=== PATIENT | female | born 1985 | race Hispanic/Latino ===

== ENCOUNTER 2022-12-08 12:15 | Inpatient (IN) | payer OTHER ==
[2022-12-08 12:46] VITALS: BMI 25.8
[2022-12-08] MEDS ORDERED: hydrALAZINE 20 MG/ML VIAL SLOW IVP PRN ×2 (13:15→23:05)
[2022-12-08] MEDS ORDERED: Lactated Ringer's 1,000 ML IV SCH ×2 (13:30→16:00)
[2022-12-08] MEDS ORDERED: Acetaminophen 500 MG TAB PO SCH (14:00)
[2022-12-08] MEDS ORDERED: Morphine 4 MG/ML VIAL SLOW IVP SCH (14:45)
[2022-12-08] MEDS ORDERED: Fentanyl 100 MCG/2 ML VIAL SLOW IVP SCH (14:45)
[2022-12-08] MEDS ORDERED: Fentanyl 100 MCG/2 ML VIAL SLOW IVP PRN (15:49)
[2022-12-08] MEDS ORDERED: Ondansetron PF 4 MG/2 ML Vial IVP PRN ×2 (15:49→17:16)
[2022-12-08] MEDS ORDERED: Diphenoxylate HCl/Atropine Tablet PO PRN (15:49)
[2022-12-08] MEDS ORDERED: Methylergonovine 0.2 MG/ML VIAL IM PRN (15:49)
[2022-12-08] MEDS ORDERED: Docusate 100 MG CAP PO PRN (15:49)
[2022-12-08] MEDS ORDERED: Butorphanol Tartrate 1 MG/ML VIAL SLOW IVP PRN (15:49)
[2022-12-08] MEDS ORDERED: Carboprost 250 MCG/ML AMP IM PRN (15:49)
[2022-12-08] MEDS ORDERED: Lidocaine 1% (PF) 30 ML VIAL SC PRN (15:49)
[2022-12-08] MEDS ORDERED: Tranexamic Acid 1,000 MG in Sodium Chloride 0.9% 250 ML 250 ML IVPB PRN (15:49)
[2022-12-08] MEDS ORDERED: Acetaminophen 500 MG TAB PO PRN (15:49)
[2022-12-08] MEDS ORDERED: Misoprostol 200 MCG TAB PR PRN (15:49)
[2022-12-08] MEDS ORDERED: Promethazine HCl 25 MG/ML VIAL IM PRN ×2 (15:49→17:16)
[2022-12-08] MEDS ORDERED: NS w/ Oxytocin 30 units 500 ML IV SCH ×2 (16:00)
[2022-12-08] MEDS ORDERED: Misoprostol 100 MCG TAB VAG SCH ×2 (16:00)
[2022-12-08] MEDS ORDERED: Fentanyl 2 mcg/Bup 0.1% Cadd 100 ML ONE (16:01)
[2022-12-08 16:30] LABS: Hemoglobin 11.4 g/dL (12.0-15.5); Mean Corpuscular HGB CONC 33.9 g/dL (32.0-36.0); Mean Corpuscular Hemoglobin 29.7 pg (27.0-33.0); Mean Corpuscular Volume 87.5 fl (81.6-98.3); Mean Platelet Volume 12.3 fl (7.4-10.4); Platelet Count 229 10x3/uL (150-450); RBC Distribution Width 14.7 % (11.5-14.5); Red Blood Cell (RBC) Count 3.84 10x6/uL (3.90-5.03); White Blood Cell (WBC) Count 16.2 10x3/uL (3.5-10.5)
[2022-12-08 17:06] LABS: Syphilis Antibody Nonreactive (Nonreactive); Syphilis Antibody Index 0.07 S/CO (<1.00 Non-Reactive)
[2022-12-08 17:08] LABS: HBSAg Index 0.15 S/CO (0-0.99); Hep B Surf Ag Non-Reactive S/CO (NonReactive)
[2022-12-08] MEDS ORDERED: Naloxone HCl 0.4 mg/ml Vial IVP PRN ×2 (17:16)
[2022-12-08] MEDS ORDERED: Lactated Ringer's 500 ML IV PRN (17:16)
[2022-12-08] MEDS ORDERED: ePHEDrine Sulfate 50 MG/10 ML VIAL SLOW IVP PRN (17:16)
[2022-12-08] MEDS ORDERED: Moisturizing Cream (Eucerin) 113 GM JAR TOP PRN (17:16)
[2022-12-08] MEDS ORDERED: Acetaminophen 325 MG TAB PO PRN (17:16)
[2022-12-08] MEDS ORDERED: diphenhydrAMINE 50 MG/ML VIAL IVP PRN (17:16)
[2022-12-08] MEDS ORDERED: Fentanyl 2 mcg/Bupivacaine 0.1% Cassette 100 ML EPIDURAL SCH (17:30)
[2022-12-08] MEDS ORDERED: Communication Order-Pharmacy FS SCH (17:30)
[2022-12-08] MEDS ORDERED: Lidocaine 2% MPF 10 ML AMP (For Epidural Use) ONE (17:42)
[2022-12-08] MEDS ORDERED: Fentanyl 100 MCG/2 ML VIAL ONE ×2 (17:42→20:17)
[2022-12-08 18:27] LABS: SARS-CoV-2 NAA Rapid Test Not Detected (NotDetected)
[2022-12-08 22:40] LABS: pH (Cord, venous) 7.282 (7.250-7.350)
[2022-12-08] MEDS ORDERED: HYDROcodone/Acetaminophen 5/325 mg Tablet PO PRN (23:05)
[2022-12-08] MEDS ORDERED: Milk Of Magnesia 30 ML UDCUP PO PRN (23:05)
[2022-12-08] MEDS ORDERED: Bisacodyl 10 MG SUPP PR PRN (23:05)
[2022-12-08] MEDS ORDERED: Lanolin Ointment 7 GM TUBE TOP PRN (23:05)
[2022-12-08] MEDS ORDERED: Measles/Mumps/Rubella 10 MCG/0.5 ML VIAL SC ONE (23:05)
[2022-12-08] MEDS ORDERED: Boostrix 0.5 ML (Tdap) VIAL (>/=7 yrs of age) IM ONE (23:05)
[2022-12-08] MEDS ORDERED: Benzocaine-Menthol 82.5 ML CAN TOP PRN (23:05)
[2022-12-08] MEDS ORDERED: diphenhydrAMINE 25 MG CAP PO PRN (23:05)
[2022-12-08] MEDS ORDERED: Preparation H Ointment 28 GM TUBE PR PRN (23:05)
[2022-12-09] MEDS: Ibuprofen 800 MG TAB PO PRN ×2 (03:25→14:58)
[2022-12-09 05:22] LABS: Hemoglobin 9.2 g/dL (12.0-15.5)
[2022-12-09] MEDS ORDERED: Ferrous Sulfate 325 MG TAB PO SCH (08:00)
[2022-12-09] MEDS: Docusate 100 MG CAP PO SCH ×2 (09:54→21:36)
[2022-12-09] MEDS: Prenatal Vitamin 1 TAB PO SCH (09:54)
[2022-12-10 07:26] VITALS: BP 102/52; TEMP 97.6
[2022-12-10] MEDS: Docusate 100 MG CAP PO SCH (09:06)
[2022-12-10] MEDS: Prenatal Vitamin 1 TAB PO SCH (09:06)
== END 2022-12-10 12:30 | disposition home or self-care (01) | DRG 806 ==
LOC: CSHLD/OP 12:15 → CSHLD 16:07 → CSHPP 12-09 01:27
PROVIDERS: ADMIT Student in an Organized Health Care Education/Training Program; ATTEND Student in an Organized Health Care Education/Training Program
PROC: 10E0XZZ Delivery of Products of Conception, External Approach (ICD-10-PCS; principal; 2022-12-08)
PROC: 0UQGXZZ Repair Vagina, External Approach (ICD-10-PCS; 2022-12-08)
DX: O42.02 Full-term premature rupture of membranes, onset of labor within 24 hours of rupture (principal); O71.4 Obstetric high vaginal laceration alone; Z37.0 Single live birth; O77.0 Labor and delivery complicated by meconium in amniotic fluid; Z3A.38 38 weeks gestation of pregnancy; Z90.721 Acquired absence of ovaries, unilateral; Z98.890 Other specified postprocedural states; Z20.822 Contact with and (suspected) exposure to COVID-19
CPT/HCPCS: 36415; 51702; 82805; 85014; 85018; 85027; 86780; 86850; 86900; 86901; 87340; 88307; 96375; 99285; J0595; J2405; J3010; U0002

== ENCOUNTER 2024-04-01 20:53 | Inpatient (IN) | payer MEDICAID, OTHER ==
[2024-04-01 21:20] VITALS: BMI 27.4
[2024-04-01] MEDS ORDERED: Lidocaine 1% (PF) 30 ML VIAL SC PRN (22:21)
[2024-04-01] MEDS ORDERED: Acetaminophen 500 MG TAB PO PRN (22:21)
[2024-04-01] MEDS ORDERED: fentaNYL 50 mcg/mL 1 mL Vial SLOW IVP PRN (22:21)
[2024-04-01] MEDS ORDERED: hydrALAZINE 20 MG/ML VIAL SLOW IVP PRN (22:21)
[2024-04-01] MEDS ORDERED: Misoprostol 200 MCG TAB PR PRN (22:21)
[2024-04-01] MEDS ORDERED: Ondansetron PF 4 MG/2 ML Vial IVP PRN (22:21)
[2024-04-01] MEDS ORDERED: Diphenoxylate HCl/Atropine Tablet PO PRN (22:21)
[2024-04-01] MEDS ORDERED: Promethazine HCl 25 MG/ML VIAL IM PRN (22:21)
[2024-04-01] MEDS ORDERED: Carboprost 250 MCG/ML AMP IM PRN (22:21)
[2024-04-01] MEDS ORDERED: Methylergonovine 0.2 MG/ML VIAL IM PRN (22:21)
[2024-04-01] MEDS ORDERED: Tranexamic Acid 1,000 MG/10 ML VIAL IVP PRN (22:21)
[2024-04-01] MEDS ORDERED: Ibuprofen 800 MG TAB PO PRN (22:21)
[2024-04-01] MEDS ORDERED: Oxytocin 30 units/NS 500 ML 500 ML IV SCH (22:30)
[2024-04-01 23:02] LABS: Hematocrit 30.9 % (34.9-44.5); Hemoglobin 10.5 g/dL (12.0-15.5); Mean Corpuscular Hemoglobin 30.3 pg (27.0-33.0); Mean Platelet Volume 10.1 fL (7.4-10.4); Platelet Count 284 10x3/uL (150-450); RBC Distribution Width 14.5 % (11.5-14.5); Red Blood Cell (RBC) Count 3.47 10x6/uL (3.90-5.03); White Blood Cell (WBC) Count 8.4 10x3/uL (3.5-10.5)
[2024-04-01] MEDS: Misoprostol 100 MCG TAB VAG SCH (23:12)
[2024-04-01 23:26] LABS: Syphilis Antibody Nonreactive (Nonreactive); Syphilis Antibody Index 0.07 S/CO (<1.00 Non-Reactive)
[2024-04-01 23:27] LABS: HBsAg Index 0.16 S/CO (0-0.99); Hep B Surf Ag - L&D Non-Reactive S/CO (NonReactive)
[2024-04-02] MEDS: Lactated Ringer's 1,000 ML IV SCH (09:30)
[2024-04-02] MEDS: fentaNYL/Ropivacaine Epidural 100 ML ONE (10:13)
[2024-04-02] MEDS ORDERED: Naloxone HCl 0.4 mg/ml Vial IVP PRN ×2 (10:19)
[2024-04-02] MEDS ORDERED: Acetaminophen 325 MG TAB PO PRN (10:19)
[2024-04-02] MEDS ORDERED: ePHEDrine Sulfate 50 MG/10 ML VIAL SLOW IVP PRN (10:19)
[2024-04-02] MEDS ORDERED: Lactated Ringer's 500 ML IV PRN (10:19)
[2024-04-02] MEDS ORDERED: diphenhydrAMINE 50 MG/ML VIAL IVP PRN (10:19)
[2024-04-02] MEDS ORDERED: Ondansetron PF 4 MG/2 ML Vial IVP PRN (10:19)
[2024-04-02] MEDS ORDERED: Moisturizing Cream (Eucerin) 113 GM JAR TOP PRN (10:19)
[2024-04-02] MEDS ORDERED: Promethazine HCl 25 MG/ML VIAL IM PRN (10:19)
[2024-04-02] MEDS ORDERED: fentaNYL 2 mcg/Ropivacaine 0.2% Epidural 100 ML CADD EPIDURAL SCH (10:30)
[2024-04-02] MEDS ORDERED: Communication Order-Pharmacy FS SCH (10:30)
[2024-04-02] MEDS ORDERED: Dextrose 5%-Lactated Ringers 1,000 ML IV SCH (13:45)
[2024-04-02] MEDS: Oxytocin 30 units/NS 500 ML 500 ML IV SCH (15:58)
[2024-04-02] MEDS ORDERED: Milk Of Magnesia 30 ML UDCUP PO PRN (16:11)
[2024-04-02] MEDS ORDERED: Bisacodyl 10 MG SUPP PR PRN (16:11)
[2024-04-02] MEDS ORDERED: hydrALAZINE 20 MG/ML VIAL SLOW IVP PRN (16:11)
[2024-04-02] MEDS: Lidocaine 1% (PF) 30 ML VIAL ONE (17:24)
[2024-04-02] MEDS: Dexmedetomidine 200 MCG/2 ML VIAL ONE (17:24)
[2024-04-02] MEDS: Ferrous Sulfate 325 MG TAB PO SCH (18:10)
[2024-04-02] MEDS: Boostrix 0.5 ML (Tdap) VIAL (>/=7 yrs of age) IM ONE (18:10)
[2024-04-02] MEDS ORDERED: Ibuprofen 600 MG TAB PO PRN (20:18)
[2024-04-02] MEDS: Ibuprofen 800 MG TAB PO SCH (21:17)
[2024-04-02] MEDS: Docusate 100 MG CAP PO SCH (21:17)
[2024-04-03 15:49] VITALS: BP 122/64; TEMP 98.3
== END 2024-04-03 18:30 | disposition home or self-care (01) | DRG 807 ==
LOC: CSHLD 20:53 → CSHPP 04-02 18:18
PROVIDERS: ADMIT Student in an Organized Health Care Education/Training Program; ATTEND Student in an Organized Health Care Education/Training Program
PROC: 10E0XZZ Delivery of Products of Conception, External Approach (ICD-10-PCS; principal; 2024-04-02)
DX: O99.02 Anemia complicating childbirth (principal); Z37.0 Single live birth; Z90.721 Acquired absence of ovaries, unilateral; Z3A.39 39 weeks gestation of pregnancy; D50.9 Iron deficiency anemia, unspecified
CPT/HCPCS: 36415; 51702; 85027; 86780; 86850; 86900; 86901; 87340; J2590; J7120